=== PATIENT | female | born 1985 | race Caucasian/White ===

== ENCOUNTER 2018-09-04 23:24 | Emergency (ER) | payer OTHER ==
--- NOTE | 2018-09-05 00:20 | EDM.PDOC ---
ED HPI GENERAL MEDICAL PROBLEM - General Chief Complaint: General Stated Complaint: hypertension Time Seen by Provider: 09/04/18 23:36 Source of Information: Reports: Patient History Limitations: Reports: No Limitations - History of Present Illness INITIAL COMMENTS - FREE TEXT/NARRATIVE: Patient reports having delivered about 6 weeks ago and afterward developed hypertension. She was admitted last week by Dr. Contreras and given magnesium, and started on procardia. She was seen Monday at the clinic and her medication was doubled from 30 mg extended release to 60 mg extended release. She is complaining of some dizziness/lightheadedness this evening and is worried about her blood pressure. She denies headache, chest pain, SOB, confusion, nausea, vomiting, diarrhea. States she is drinking 8 oz of water every hour or so and is . Onset: Today, Gradual Duration: Intermittent Improves with: Reports: Medication - Related Data Allergies Allergy/AdvReac Type Severity Reaction Status Date / Time cefaclor [From Ceclor] Allergy Other Verified 09/04/18 23:28 clindamycin Allergy Rash Verified 09/04/18 23:28 codeine Allergy Other Verified 09/04/18 23:28 Penicillins Allergy Other Verified 09/04/18 23:28 Home Meds: Home Meds NIFEdipine [Procardia Xl] 60 mg PO DAILY 09/04/18 [History] Past Medical History Other HEENT History: perforated Ear drum L ear. 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 Social & Family History - Tobacco Use Smoking Status *Q: Current Every Day Smoker Years of Tobacco use: 12 Packs/Tins Daily: 0.2 ED ROS GENERAL - Review of Systems Review Of Systems: See Below Constitutional: Reports: No Symptoms HEENT: Reports: No Symptoms Respiratory: Reports: No Symptoms Cardiovascular: Reports: No Symptoms Endocrine: Reports: No Symptoms GI/Abdominal: Reports: No Symptoms : Reports: No Symptoms Musculoskeletal: Reports: No Symptoms Skin: Reports: No Symptoms Neurological: Reports: Dizziness Psychiatric: Reports: No Symptoms Hematologic/Lymphatic: Reports: No Symptoms Immunologic: Reports: No Symptoms ED EXAM, GENERAL - Physical Exam Exam: See Below Exam Limited By: No Limitations General Appearance: Alert, WD/WN, No Apparent Distress Eye Exam: Bilateral Eye: EOMI, PERRL Ears: Normal TMs Nose: Normal Inspection, Normal Mucosa, No Blood Throat/Mouth: Normal Inspection, Normal Lips, Normal Teeth, Normal Gums, Normal Oropharynx, Normal Voice, No Airway Compromise Head: Atraumatic, Normocephalic Neck: Normal Inspection, Supple, Non-Tender, Full Range of Motion Respiratory/Chest: No Respiratory Distress, Lungs Clear, Normal Breath Sounds, No Accessory Muscle Use, Chest Non-Tender Cardiovascular: Normal Peripheral Pulses, Regular Rate, Rhythm, No Edema, No Gallop, No JVD, No Murmur, No Rub Peripheral Pulses: 2+: Posterior Tibial (L), Posterior Tibial (R), Dorsalis Pedis (L), Dorsalis Pedis (R) GI/Abdominal: Normal Bowel Sounds, Soft, Non-Tender, No Organomegaly, No Distention, No Abnormal Bruit, No Mass Back Exam: Normal Inspection, Full Range of Motion, NT Extremities: Normal Inspection, Normal Range of Motion, Non-Tender, Normal Capillary Refill, No Pedal Edema Neurological: Alert, Oriented, CN II-XII Intact, Normal Cognition, Normal Gait, Normal Reflexes, No Motor/Sensory Deficits Psychiatric: Normal Affect, Normal Mood Skin Exam: Warm, Dry, Intact, Normal Color, No Rash Lymphatic: No Adenopathy Course - Vital Signs Last Recorded V/S: Last Vital Signs Temp 35.5 C 09/04/18 23:25 Pulse 85 09/04/18 23:25 Resp 18 09/04/18 23:25 BP 164/97 H 09/04/18 23:25 Pulse Ox 99 09/04/18 23:25 - Orders/Labs/Meds Orders: Active Orders 24 hr Category Date Time Status CBC WITH AUTO DIFF [HEME] Stat Lab 09/04/18 23:42 Ordered COMPREHENSIVE METABOLIC PN,CMP [CHEM] Stat Lab 09/04/18 23:42 Ordered MAGNESIUM [CHEM] Stat Lab 09/04/18 23:42 Ordered URINALYSIS W/MICROSCOPIC [UA W/MICROSCOPIC] [URIN] Stat Lab 09/04/18 23:42 Ordered - Re-Assessments/Exams Free Text/Narrative Re-Assessment/Exam: 09/05/18 01:01 urine sample contains trace leukocytes, wbc, mucous, bacteria. NO antibiotic started due to rash allergy to PCN products, and breast milk transfer of macrobid, cefpodoxime, possible allergy to augmentin. Patient has requested to wait until culture is resulted and need for antibiotic is clear. Departure - Departure Time of Disposition: 01:05 Disposition: Home, Self-Care 01 Condition: Good Clinical Impression: Hypertension, condition or complication - Discharge Information *PRESCRIPTION DRUG MONITORING PROGRAM REVIEWED*: Not Applicable *COPY OF PRESCRIPTION DRUG MONITORING REPORT IN PATIENT MIRZA: Not Applicable Instructions: Hypertension Additional Instructions: Plan 1. There is a urine culture pending. We will call you with a choice of safe antibiotic while if this grows any bacteria indicating the need for an antibiotic. 2. Stay well hydrated. This will assist with maintaining your blood pressure as well. 3. Your body continues to adapt to childbirth, and the new medications. Schedule regular blood pressure checks with your primary as well as follow up visits to discuss plan for discontinuing the Procardia medication as able. 4. Please call with any questions or concerns. I have included information for you to read regarding post hypertension. - Problem List & Annotations (1) Hypertension, condition or complication SNOMED Code(s): 78571522, 36958224, [id number] Code(s): O16.5 - UNSPECIFIED MATERNAL HYPERTENSION, COMP THE PUERPERIUM Status: Acute Priority: Medium - Problem List Review Problem List Initiated/Reviewed/Updated: Yes - My Orders Last 24 Hours: My Active Orders 09/04/18 23:42 CBC WITH AUTO DIFF [HEME] Stat COMPREHENSIVE METABOLIC PN,CMP [CHEM] Stat MAGNESIUM [CHEM] Stat URINALYSIS W/MICROSCOPIC [UA W/MICROSCOPIC] [URIN] Stat - Assessment/Plan Last 24 Hours: My Active Orders 09/04/18 23:42 CBC WITH AUTO DIFF [HEME] Stat COMPREHENSIVE METABOLIC PN,CMP [CHEM] Stat MAGNESIUM [CHEM] Stat URINALYSIS W/MICROSCOPIC [UA W/MICROSCOPIC] [URIN] Stat Assessment:: post hypertension Plan: Plan 1. There is a urine culture pending. We will call you with a choice of safe antibiotic while if this grows any bacteria indicating the need for an antibiotic. 2. Stay well hydrated. This will assist with maintaining your blood pressure as well. 3. Your body continues to adapt to childbirth, and the new medications. Schedule regular blood pressure checks with your primary as well as follow up visits to discuss plan for discontinuing the Procardia medication as able. 4. Please call with any questions or concerns. I have included information for you to read regarding post hypertension.
[2018-09-05 00:43] LABS: ANION GAP 13.1 mmol/L (10-20); CHLORIDE,CL 102 mmol/L (98-107); SODIUM,NA 136 mmol/L (136-145)
[2018-09-05 01:08] VITALS: BP 121/82
== END 2018-09-05 01:06 | disposition home or self-care (01) ==
LOC: VM.ED 23:24
DX: O16.5 Unspecified maternal hypertension, complicating the puerperium (principal); O99.335 Smoking (tobacco) complicating the puerperium; F17.210 Nicotine dependence, cigarettes, uncomplicated; Z88.5 Allergy status to narcotic agent; Z88.0 Allergy status to penicillin; Z88.1 Allergy status to other antibiotic agents
CPT/HCPCS: 36415; 80053; 81001; 83735; 85025; 87086; 99284

== ENCOUNTER 2018-10-20 16:56 | Emergency (ER) | payer OTHER ==
--- NOTE | 2018-10-20 17:06 | EDM.PDOC ---
ED HPI GENERAL MEDICAL PROBLEM - General Time Seen by Provider: 10/20/18 17:04 - History of Present Illness INITIAL COMMENTS - FREE TEXT/NARRATIVE: NURSE VISIT ONLY - NO PROVIDER EXAM - Related Data Allergies Allergy/AdvReac Type Severity Reaction Status Date / Time cefaclor [From Ceclor] Allergy Other Verified 09/04/18 23:28 clindamycin Allergy Rash Verified 09/04/18 23:28 codeine Allergy Other Verified 09/04/18 23:28 Penicillins Allergy Other Verified 09/04/18 23:28 Home Meds: Home Meds NIFEdipine [Procardia Xl] 60 mg PO DAILY 09/04/18 [History] Past Medical History Other HEENT History: perforated Ear drum L ear. 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 ED ROS GENERAL - Review of Systems Review Of Systems: See Below (NURSE ONLY VISIT - NO PROVIDER EXAM) ED EXAM, GENERAL - Physical Exam Exam: Not Obtained (NURSE ONLY VISIT - NO PROVIDER EXAM) Course - Vital Signs Last Recorded V/S: Last Vital Signs Temp 36.6 C 10/20/18 17:01 Pulse 116 H 10/20/18 17:01 Resp 16 10/20/18 17:01 BP 146/100 H 10/20/18 17:01 Pulse Ox 98 10/20/18 17:01 Departure - Departure Time of Disposition: 17:05 Disposition: Home, Self-Care 01 Clinical Impression: Blood pressure check - Discharge Information *PRESCRIPTION DRUG MONITORING PROGRAM REVIEWED*: Not Applicable *COPY OF PRESCRIPTION DRUG MONITORING REPORT IN PATIENT MIRZA: Not Applicable
[2018-10-20 17:13] VITALS: BP 149/89
== END 2018-10-20 17:18 | disposition home or self-care (01) ==
LOC: VM.ED 16:56
DX: Z53.21 Procedure and treatment not carried out due to patient leaving prior to being seen by health care provider (principal)
CPT/HCPCS: 99281